=== PATIENT | female | born 1980 | race Caucasian/White ===

== ENCOUNTER → 2017-09-30 | Outpatient (CLI) | payer MEDICARE ==
[~2017-09-30] MED LIST: AMO875 PO; BUPR-127 PO; CEPH500C24 PO; CLI150 PO; DIA5 PO; DULO30CA35 PO; GADOBENATE 529MG/1ML 15ML VIAL IVP ONE; HYDR-3083 PO; IBU800 PO; IRON1TAB55 PO; LEVO1TAB48 PO; LISI5TAB25 PO; LOR5/325 PO; MEC25 PO; METH5TAB85 PO; NAT300I IV; ONDA4TAB PO; PRED-314 PO; [UNRECOGNIZED DRUG - CODE] PO
--- NOTE | 2017-09-30 14:42 | RADIOLOGY IMAGING REPORT ---
FACILITY: [facility] PATIENT NAME: Ania Curiel : 1980 MR: [id number] V: [id number] EXAM DATE: ORDERING PHYSICIAN: NERY NOYOLA TECHNOLOGIST: Location: [facility] Patient: Ania Curiel : 1980 Visit/Account:[id number] Date of Sevice: 09/30/2017 BRAIN W W/O CONTRAST Provided history: Follow-up MS Additional pertinent history: none TECHNIQUE: Multiplanar multisequence brain MRI was performed without and with intravenous contrast Contrast dose: 15 mL of MultiHance. Additional focused sequences: Additional FLAIR sequences in the sagital and coronal planes COMPARISON STUDIES: MRI 07/15/16 FINDINGS: Brain volume: Normal Acute ischemia: None Chronic cortical and ganglionic ischemia: none significant Hemorrhage: None Masses / edema: None White matter lesions : Reidentified are several White matter abnormalities, precisely unchanged from prior. Specifically, there is one lesion that is dominant, perpendicular to the left atrial trigone measuring 5 x 12 mm transverse diameter. Another is located in the undersurface of the genu of the co rpus callosum, stable. Two additional punctate foci in the peripheral white matter one in the upper l eft frontal lobe and the second in the medial-anterior right temporal lobe. None of these demonstrate enhancement after gadolinium. There are no new lesions. Vessels: Normal Extra-axial: None Calvarium / scalp: Negative Skull base / infratemporal fossa: negative Visualized sinuses / orbits / upper neck: negative IMPRESSION: Stable white matter changes. No new or enhancing lesions. No evidence of hemorrhage, ischemia or mass. Report Dictated By: Rosendo Henderson MD at 09/30/2017 2:29 PM Report E-Signed By: Rosendo Henderson MD at 09/30/2017 2:38 PM WSN:[id number]
== END ==
LOC: MRI 00:59
PROVIDERS: ATTEND Psychiatry & Neurology Neurology
DX: R90.82 White matter disease, unspecified (principal)
CPT/HCPCS: 70553; A9577

== ENCOUNTER 2017-10-27 16:52 | Emergency (ER) | payer MEDICARE ==
[~2017-10-27 16:52] MED LIST changes: -GADOBENATE 529MG/1ML 15ML VIAL IVP ONE
[2017-10-27] MEDS ORDERED: ENT KIT ONE (17:01)
[2017-10-27] MEDS ORDERED: PHENYLEPHRINE 0.5% 15 ML BTL ONE (17:05)
--- NOTE | 2017-10-27 17:08 | ER Report ---
History and Physical Time Seen By MD: 17:06 (LASHONDA SHARP MD) Time Seen By MD: 18:00 (ANDERSON PANCHAL DO) HPI/ROS CHIEF COMPLAINT: Nosebleed HISTORY OF PRESENT ILLNESS: i patient is a 37-year-old female significant past medical history of multiple sclerosis presents emergency Department with epistaxis for the last 6 hours. Patient states that in the left naris and then migrated to both. Patient attempted to apply pressure to the nose and packed tissues upper nose with little to no benefit. Patient does not have a significant history of nosebleeds but has had nosebleeds in the past. Patient denies trauma additional complaints REVIEW OF SYSTEMS: Respiratory: No cough, no dyspnea. Cardiovascular: No chest pain, no palpitations. Gastrointestinal: No vomiting, no abdominal pain. Musculoskeletal: No back pain. Remainder of the 14 system rev: Yes (LASHONDA SHARP MD) HPI/ROS Please see Dr. Sharp's note (ANDERSON PANCHAL DO) Allergies: Coded Allergies: No Known Drug Allergies (Verified , 01/08/14) Home Meds Reported Medications Natalizumab (TYSABRI) 300 Mg/15 Ml Injs, 300 MG IV DIRECTED MONTHLY 08/19/12 Methylphenidate Hcl (RITALIN) 5 Mg Tablet, 5 MG PO BID 08/19/12 Lisinopril (LISINOPRIL) 5 Mg Tablet, 5 MG PO QDAY 08/19/12 Duloxetine Hcl (CYMBALTA) 30 Mg Capsule.dr, 30 MG PO QDAY 08/19/12 Bupropion Hcl (WELLBUTRIN) 75 Mg Tablet, 75 MG PO BID 08/19/12 Reviewed Nurses Notes: Yes Old Medical Records Reviewed: Yes (LASHONDA SHARP MD) Hx Smoking: No Exposure to Second Hand Smoke?: No Hx Substance Use Disorder: No Hx Alcohol Use: Yes (RARE) (LASHONDA SHARP MD) Constitutional Vital Sign - Last 24 Hours 10/27/17 10/27/17 10/27/17 10/27/17 16:55 16:59 17:22 17:30 Temp 98.0 Pulse 87 76 Resp 18 B/P (MAP) 134/84 156/88 (110) 127/71 (89) Pulse Ox 96 95 O2 Delivery Room Air 9/1910/27/17 10/27/17 10/27/17 17:52 18:00 18:22 18:27 Pulse 83 80 78 B/P (MAP) 128/69 (88) Pulse Ox 96 98 96 10/27/17 10/27/17 18:30 18:42 Pulse 74 B/P (MAP) 140/110 (120) Pulse Ox 94 (ANDERSON PANCHAL DO) Physical Exam General appearance: Alert no distress. Respiratory: Chest is non tender, lungs are clear to auscultation. Cardiac: Regular rate and rhythm [ ] Nasal examination patient with mild epistaxis from the right and left naris simultaneously patient has no obvious overt signs of trauma DIFFERENTIAL DIAGNOSIS: After history and physical exam differential diagnosis was considered for epistaxis (LASHONDA SHARP MD) Physical Exam Please see Dr. Sharp's note (ANDERSON PANCHAL DO) Medical Decision Making ED Course/Re-evaluation ED Course Please see Dr. Sharp's note. I took over care of this patient from Dr. Sharp. 2nd round of Jt-Synephrine and clamping yielded some residual bleeding so tranexamic acid was applied to bilateral nares with clamping. Patient had hemostasis after application. I advised the patient that if she experiences a believe that she may spray Afrin into the nasal passages and apply a clamp for 15 minutes. Patient voiced understanding of plan. Decision to Disposition Date: Oct 27, 2017 Decision to Disposition Time: 19:13 (ANDERSON PANCHAL DO) Depart Departure Latest Vital Signs Vital Signs Date Time Temp Pulse Resp B/P (MAP) Pulse Ox O2 Delivery O2 Flow Rate FiO2 10/27/17 18:42 74 94 10/27/17 18:30 140/110 (120) 10/27/17 16:55 98.0 18 Room Air (ANDERSON PANCHAL DO) Impression: Primary Impression: Epistaxis Condition: Improved Disposition: HOME OR SELF-CARE Referrals: GEOVANNA LARSON DO (PCP) Patient Instructions: Nosebleed (ED) Additional Instructions: If you experience a rebleed, you may consider spraying Afrin or oxymetolazone into your nose and applying direct pressure or pinching the nose for 15 minutes without stopping. Please return if you are unable to stop your nosebleed. You may consider using saline gel and applying this to the nasal passages in order to moisturize the nasal cavity. LASHONDA SHARP MD Oct 27, 2017 17:08 ANDERSON PANCHAL DO Oct 27, 2017 18:01
[2017-10-27] MEDS ORDERED: TRANEXAMIC AC 1000 MG/10ML SDV ONE (18:30)
[2017-10-27 19:00] VITALS: BP 133/66
== END 2017-10-27 19:23 | disposition home or self-care (01) ==
LOC: ER 17:00
DX: R04.0 Epistaxis (principal)
CPT/HCPCS: 30901; 99282; A9270

== ENCOUNTER → 2018-06-08 | Outpatient (REF) | payer MEDICARE ==
[2018-06-08 14:04] LABS: PLATELET COUNT, AUTOMATED 351 K/uL (150-450)
== END ==
LOC: ZZSTITCHES 13:41
PROVIDERS: ATTEND Physician Assistant
DX: R00.0 Tachycardia, unspecified (principal); R09.02 Hypoxemia; R05 Cough
CPT/HCPCS: 82310; 82374; 82435; 82565; 82947; 84132; 84295; 84520; 85025; 85379